=== PATIENT | male | born 1975 | race Caucasian/White ===

== ENCOUNTER 2020-10-06 17:17 | Emergency (ER) | payer MEDICAID ==
[~2020-10-06] VITALS: Ht 195.6 cm; Wt 131.5 kg
[~2020-10-06 17:17] MED LIST: REGLAN 10 MG TA10 MG PO
[2020-10-06 17:32] VITALS: BP 144/100
[2020-10-06] MEDS ORDERED: LISINOPRIL10 MG PO (17:35)
[2020-10-06] MEDS ORDERED: ASA81BEC PO (17:35)
[2020-10-06] MEDS ORDERED: ESCITALOPRA5 MG/5 ML PO (17:35)
[2020-10-06] MEDS ORDERED: LIPITOR80 MG PO (17:35)
[2020-10-06] MEDS ORDERED: SERTRALINE HCL100 MG PO (17:36)
[2020-10-06] MEDS ORDERED: LOPRESSOR50 MG PO (17:36)
[2020-10-06] MEDS ORDERED: APAP650 PO (17:36)
[2020-10-06] MEDS ORDERED: DULERA 200 MCG/13 GM INH (17:36)
[2020-10-06] MEDS ORDERED: MELATONIN10 M3 PO (17:36)
[2020-10-06] MEDS ORDERED: FLONASE 0.05%50 MCG NARES (17:36)
[2020-10-06] MEDS ORDERED: GLIPIZIDE 10 MG10 MG PO (17:37)
[2020-10-06] MEDS ORDERED: PROAIR HFA8.5 GM INH (17:37)
[2020-10-06] MEDS ORDERED: NORVASC 2.5 MG2.5 M1 PO (17:37)
[2020-10-06] MEDS ORDERED: RISPERDAL2 MG PO (17:37)
[2020-10-06] MEDS ORDERED: JANUVIA100 MG PO (17:37)
[2020-10-06] MEDS ORDERED: LORATIDINE 10 M10 M1 PO (17:37)
[2020-10-06] MEDS ORDERED: NORCO 5-325 TA1 EAC2 PO (18:26)
[2020-10-06] MEDS ORDERED: IBUPROFEN 800800 M1 PO (18:26)
== END 2020-10-06 19:22 | disposition home or self-care (01) ==
LOC: M.ERS 17:17
DX: S93.401A Sprain of unspecified ligament of right ankle, initial encounter (principal); E11.9 Type 2 diabetes mellitus without complications; Z79.82 Long term (current) use of aspirin; Z79.899 Other long term (current) drug therapy; X50.1XXA Overexertion from prolonged static or awkward postures, initial encounter; Y93.89 Activity, other specified; Y92.812 Truck as the place of occurrence of the external cause; Y99.8 Other external cause status